=== PATIENT | male | born 2000 | race Caucasian/White ===

== ENCOUNTER 2018-07-20 23:26 | Inpatient (IN) | payer SELFPAY ==
[~2018-07-20] VITALS: Ht 170.2 cm; Wt 124.6 kg
[2018-07-20 23:58] LABS: GLUCOSE,POINT OF CARE 306 MG/DL (70-110)
[2018-07-21] MEDS ORDERED: 0.9% SODIUM CHLORIDE 10 ML SYRINGE IVP PRN ×2 (00:45→05:00)
[2018-07-21 01:00] LABS: APPEARANCE,URINE CLEAR (CLEAR); BILIRUBIN,URINE NEGATIVE (NEGATIVE); GLUCOSE, URINE (UA) >=1000 mg/dL (NEGATIVE); KETONES,URINE 15 mg/dL (NEGATIVE); LEUKOCYTE ESTERASE ,URINE NEGATIVE (NEGATIVE); NITRATE,URINE NEGATIVE (NEGATIVE); OCCULT BLOOD,URINE SMALL (NEGATIVE); PROTEIN,URINE POS 1+ (NEGATIVE); UROBILINOGEN,URINE 0.2 mg/dL (<=1.0)
[2018-07-21] MEDS ORDERED: SODIUM CHLORIDE 0.9% 2,400 ML IV ONE (01:00)
[2018-07-21 01:17] LABS: BACTERIA,URINE Few /HPF (None Seen); SQUAMOUS EPITHELIAL CELL,UR Rare /LPF (None Seen); WBC,URINE 0-2 /HPF (0-5)
[2018-07-21 01:18] LABS: COARSE GRANULAR CASTS,URINE 0-2 /LPF (None Seen); FINE GRANULAR CASTS,URINE 0-2 /LPF (None Seen); HYALINE CASTS, URINE 0-2 /LPF (None Seen)
[2018-07-21] MEDS ORDERED: ONDANSETRON HCL 4 MG/2 ML VIAL IVP ONE (01:30)
[2018-07-21] MEDS ORDERED: MORPHINE SULFATE 4 MG/ML SYRINGE IVP ONE (01:30)
[2018-07-21 01:43] LABS: HEMATOCRIT 42.4 % (41-53); HEMOGLOBIN 14.3 g/dL (13.5-17.5); MEAN CORPUSCULAR HEMOGLOBIN 27.3 pg (26.0-34.0); MEAN CORPUSCULAR HGB CONC 33.7 G/dL (31.0-37.0); MEAN CORPUSCULAR VOLUME 81 fL (80-100); PLATELET COUNT (AUTO) 278 K/uL (150-450); RED BLOOD CELL COUNT(AUTO) 5.23 MIL/uL (4.50-5.90); RED CELL DISTRIBUTION WIDTH 15.2 % (11.5-14.5)
[2018-07-21] MEDS ORDERED: SODIUM CHLORIDE 0.9% 100 ML ONE (01:47)
[2018-07-21] MEDS ORDERED: IOVERSOL 350 MG/ML 100 ML VIAL ONE (01:47)
[2018-07-21 01:53] LABS: PROTHROMBIN TIME 10.5 SEC (9.4-11.6)
[2018-07-21 02:05] LABS: ANION GAP 18 mmol/L (8-16); BILIRUBIN,TOTAL 0.7 mg/dL (0.1-1.0); CALCIUM, TOTAL 9.2 mg/dL (8.8-10.5); CARBON DIOXIDE 17 mmol/L (22-29); CHLORIDE 102 mmol/L (98-107); CREATININE 0.81 mg/dL (0.60-1.30); GLOMERULAR FILTR. RATE CALC > 60 mL/min (>60); GLUCOSE,RANDOM 285 mg/dL (70-110); SODIUM SERUM 137 mmol/L (136-145); UREA NITROGEN, BLOOD 3 mg/dL (7-18)
[2018-07-21 02:06] LABS: ALANINE AMINOTRANSFERASE 115 U/L (12-78); ALKALINE PHOSPHATASE 185 U/L (46-116); ASPARTATE AMINOTRANSFERASE 46 U/L (15-37); CREATINE KINASE, TOTAL ONLY 265 U/L (39-308)
[2018-07-21 02:07] LABS: B-TYPE NATRIURETIC PEPTIDE 20 pg/mL (0-100)
[2018-07-21 02:10] LABS: POTASSIUM 1.5 mmol/L (3.5-5.1)
[2018-07-21 02:11] LABS: LACTIC ACID 3.5 mmol/L (0.4-2.0)
[2018-07-21 02:16] LABS: BAND NEUTROPHILS % (MANUAL) 0 % (0-5)
[2018-07-21 02:20] LABS: CORRECTED WHITE BLOOD COUNT 1.7 K/uL (4.5-11.0); LYMPHOCYTES % (MANUAL) 58 % (22-44); MONOCYTES % (MANUAL) 17 % (2-9); SEGMENTED NEUTROPHILS % 25 % (40-70)
[2018-07-21 02:24] LABS: GLUCOSE,POINT OF CARE 247 MG/DL (70-110)
[2018-07-21 02:25] LABS: ALBUMIN 3.3 g/dL (3.4-5.0); TOTAL PROTEIN, SERUM 6.5 g/dL (6.4-8.2)
[2018-07-21 02:30] LABS: MAGNESIUM 1.6 mg/dL (1.80-2.40)
[2018-07-21 02:33] LABS: POTASSIUM 1.5 mmol/L (3.5-5.1)
[2018-07-21] MEDS ORDERED: POTASSIUM CHLORIDE 10% 40 MEQ/30 ML LIQUID UDCUP PO ONE (02:45)
[2018-07-21 02:56] LABS: PHOSPHORUS 0.8 mg/dL (2.5-4.9)
[2018-07-21] MEDS: POTASSIUM CHL 10 MEQ/WATER 50 ML IV SCH ×4 (03:15→10:11)
[2018-07-21] MEDS ORDERED: PIPERACILLIN/TAZO 3.375 GM/D5W 50 ML IV ONE (03:30)
[2018-07-21] MEDS ORDERED: MAGNESIUM SULFATE 1 GM in DEXTROSE 5%-WATER 50 ML IV ONE (03:45)
[2018-07-21] MEDS ORDERED: ACETAMINOPHEN 325 MG TABLET PO PRN (05:00)
[2018-07-21] MEDS ORDERED: ONDANSETRON HCL 4 MG/2 ML VIAL IVP PRN (05:00)
[2018-07-21 05:54] VITALS: BP 111/59
[2018-07-21] MEDS ORDERED: SODIUM CHLORIDE 0.9% 250 ML IV ONE (06:06)
[2018-07-21 07:56] VITALS: BP 125/60
[2018-07-21] MEDS ORDERED: MAGNESIUM SULFATE 2 GM/WATER 50 ML IV PRN (09:30)
[2018-07-21] MEDS ORDERED: MAGNESIUM SULFATE 4 GM/WATER 100 ML IV PRN (09:30)
[2018-07-21] MEDS ORDERED: DEXTROSE 50%-WATER 25 GM/50 ML SYRINGE IVP PRN (09:30)
[2018-07-21] MEDS ORDERED: POTASSIUM PHOS,M-BASIC-D-BASIC 30 MEQ in DEXTROSE 5%-WATER 150 ML IV ONE (09:30)
[2018-07-21] MEDS ORDERED: MAGNESIUM HYDROXIDE SUSPENSION 30 ML UDCUP PO PRN (09:30)
[2018-07-21] MEDS ORDERED: SODIUM CHLORIDE 0.9% 1,000 ML IV ONE (09:45)
[2018-07-21] MEDS: PANTOPRAZOLE SODIUM 40 MG/VIAL IVP SCH ×2 (10:11→20:10)
[2018-07-21] MEDS: MORPHINE SULFATE 2 MG/ML SYRINGE IVP PRN ×2 (10:11→14:02)
[2018-07-21] MEDS: PIPERACILLIN/TAZO 3.375 GM/D5W 50 ML IV SCH ×3 (10:28→22:41)
[2018-07-21 11:27] VITALS: BP 119/56
[2018-07-21] MEDS: ONDANSETRON HCL 4 MG/2 ML VIAL IVP PRN (13:29)
[2018-07-21] MEDS: INSULIN LISPRO 100 UNITS/ML SQ PRN ×3 (13:30→20:09)
[2018-07-21 15:30] VITALS: BP 118/65
[2018-07-21] MEDS: ACETAMINOPHEN 325 MG TABLET PO PRN (18:47)
[2018-07-21 18:59] LABS: GLUCOMETER DEV NAME(LOC) 5S.1; GLUCOSE,POINT OF CARE 271 MG/DL (70-110)
[2018-07-21 19:04] LABS: GLUCOMETER DEV NAME(LOC) 5S.1; GLUCOSE,POINT OF CARE 279 MG/DL (70-110)
[2018-07-21 19:59] VITALS: BP 118/61
[2018-07-21] MEDS: DOCUSATE SODIUM 100 MG CAPSULE PO SCH (20:09)
[2018-07-22 00:20] VITALS: BP 125/68
[2018-07-22] MEDS: ACETAMINOPHEN 325 MG TABLET PO PRN ×3 (00:20→17:28)
[2018-07-22 00:29] LABS: GLUCOMETER DEV NAME(LOC) 5N.1; GLUCOSE,POINT OF CARE 277 MG/DL (70-110)
[2018-07-22] MEDS: PIPERACILLIN/TAZO 3.375 GM/D5W 50 ML IV SCH ×4 (03:48→22:08)
[2018-07-22 04:20] VITALS: BP 128/89
[2018-07-22] MEDS: INSULIN LISPRO 100 UNITS/ML SQ PRN ×4 (05:59→20:07)
[2018-07-22 06:48] LABS: HEMATOCRIT 39.8 % (41-53); HEMOGLOBIN 13.6 g/dL (13.5-17.5); MEAN CORPUSCULAR HEMOGLOBIN 27.5 pg (26.0-34.0); MEAN CORPUSCULAR HGB CONC 34.1 G/dL (31.0-37.0); MEAN CORPUSCULAR VOLUME 81 fL (80-100); PLATELET COUNT (AUTO) 256 K/uL (150-450); RED BLOOD CELL COUNT(AUTO) 4.93 MIL/uL (4.50-5.90); RED CELL DISTRIBUTION WIDTH 15.9 % (11.5-14.5)
[2018-07-22 07:14] LABS: ALANINE AMINOTRANSFERASE 78 U/L (12-78); ALBUMIN 2.7 g/dL (3.4-5.0); ALKALINE PHOSPHATASE 134 U/L (46-116); ANION GAP 17 mmol/L (8-16); ASPARTATE AMINOTRANSFERASE 30 U/L (15-37); BILIRUBIN,TOTAL 0.9 mg/dL (0.1-1.0); CALCIUM, TOTAL 8.2 mg/dL (8.8-10.5); CARBON DIOXIDE 20 mmol/L (22-29); CHLORIDE 101 mmol/L (98-107); CREATININE 0.87 mg/dL (0.60-1.30); GLOMERULAR FILTR. RATE CALC > 60 mL/min (>60); GLUCOSE,RANDOM 280 mg/dL (70-110); POTASSIUM 3.1 mmol/L (3.5-5.1); SODIUM SERUM 138 mmol/L (136-145); TOTAL PROTEIN, SERUM 5.6 g/dL (6.4-8.2); UREA NITROGEN, BLOOD 5 mg/dL (7-18)
[2018-07-22 07:51] VITALS: BP 124/87
[2018-07-22] MEDS: DOCUSATE SODIUM 100 MG CAPSULE PO SCH ×2 (08:12→19:51)
[2018-07-22] MEDS: PANTOPRAZOLE SODIUM 40 MG/VIAL IVP SCH ×2 (08:12→19:52)
[2018-07-22] MEDS: POTASSIUM CHLORIDE 20 MEQ ER TABLET PO PRN ×2 (08:12→22:22)
[2018-07-22 08:22] LABS: BAND NEUTROPHILS % (MANUAL) 6 % (0-5); LYMPHOCYTES % (MANUAL) 57 % (22-44); MONOCYTES % (MANUAL) 17 % (2-9); SEGMENTED NEUTROPHILS % 20 % (40-70)
[2018-07-22] MEDS: POTASSIUM CHL 10 MEQ/WATER 50 ML IV PRN ×3 (10:09→17:15)
[2018-07-22 12:09] VITALS: BP 108/64
[2018-07-22 13:45] LABS: GLUCOMETER DEV NAME(LOC) 5S.1; GLUCOSE,POINT OF CARE 298 MG/DL (70-110)
[2018-07-22] MEDS: POTASSIUM PHOS/SODIUM PHOS MIXTURE 1 POWDER PACKET PO SCH ×2 (15:31→19:51)
[2018-07-22 15:42] VITALS: BP 124/72
[2018-07-22] MEDS: MetFORMIN HCL 500 MG TABLET PO SCH (17:15)
[2018-07-22 20:31] VITALS: BP 112/66
[2018-07-22] MEDS: MORPHINE SULFATE 2 MG/ML SYRINGE IVP PRN (20:47)
[2018-07-22 22:45] LABS: GLUCOMETER DEV NAME(LOC) 5S.1; GLUCOSE,POINT OF CARE 299 MG/DL (70-110)
[2018-07-23] VITALS (7 sets, daily range): BP systolic 102–115; BP diastolic 51–88
[2018-07-23 00:04] LABS: GLUCOMETER DEV NAME(LOC) 5N.1; GLUCOSE,POINT OF CARE 299 MG/DL (70-110)
[2018-07-23 00:04] LABS: GLUCOMETER DEV NAME(LOC) 5N.1; GLUCOSE,POINT OF CARE 268 MG/DL (70-110)
[2018-07-23] MEDS: POTASSIUM CHLORIDE 20 MEQ ER TABLET PO PRN ×3 (03:03→18:38)
[2018-07-23] MEDS: PIPERACILLIN/TAZO 3.375 GM/D5W 50 ML IV SCH ×4 (03:14→21:56)
[2018-07-23] MEDS: ACETAMINOPHEN 325 MG TABLET PO PRN ×3 (04:30→20:08)
[2018-07-23] MEDS: INSULIN LISPRO 100 UNITS/ML SQ PRN ×3 (05:45→20:17)
[2018-07-23 07:31] LABS: BASOPHILS % (AUTO) 0.5 % (0.0-2.0); EOSINOPHILS % (AUTO) 0.1 % (1.0-6.0); HEMATOCRIT 40.6 % (41-53); HEMOGLOBIN 13.7 g/dL (13.5-17.5); LYMPHOCYTES # (AUTO) 1.6 K/uL (1.0-4.8); MEAN CORPUSCULAR HEMOGLOBIN 27.2 pg (26.0-34.0); MEAN CORPUSCULAR HGB CONC 33.8 G/dL (31.0-37.0); MEAN CORPUSCULAR VOLUME 81 fL (80-100); MONOCYTES # (AUTO) 0.9 K/uL (0.1-1.0); MONOCYTES % (AUTO) 23.7 % (2.0-9.0); NEUTROPHILS # (AUTO) 1.4 K/uL (1.8-7.7); NEUTROPHILS % (AUTO) 35.7 % (40.0-70.0); PLATELET COUNT (AUTO) 217 K/uL (150-450); RED BLOOD CELL COUNT(AUTO) 5.04 MIL/uL (4.50-5.90); RED CELL DISTRIBUTION WIDTH 16.4 % (11.5-14.5)
[2018-07-23 07:41] LABS: ALANINE AMINOTRANSFERASE 63 U/L (12-78); ALBUMIN 2.4 g/dL (3.4-5.0); ALKALINE PHOSPHATASE 100 U/L (46-116); ANION GAP 15 mmol/L (8-16); ASPARTATE AMINOTRANSFERASE 26 U/L (15-37); BILIRUBIN,TOTAL 0.9 mg/dL (0.1-1.0); CALCIUM, TOTAL 8.4 mg/dL (8.8-10.5); CARBON DIOXIDE 21 mmol/L (22-29); CHLORIDE 99 mmol/L (98-107); CREATININE 0.91 mg/dL (0.60-1.30); GLOMERULAR FILTR. RATE CALC > 60 mL/min (>60); GLUCOSE,RANDOM 174 mg/dL (70-110); POTASSIUM 3.1 mmol/L (3.5-5.1); SODIUM SERUM 135 mmol/L (136-145); TOTAL PROTEIN, SERUM 5.4 g/dL (6.4-8.2); UREA NITROGEN, BLOOD 7 mg/dL (7-18)
[2018-07-23 07:43] LABS: PHOSPHORUS 1.3 mg/dL (2.5-4.9)
[2018-07-23] MEDS: MetFORMIN HCL 500 MG TABLET PO SCH ×2 (08:28→17:33)
[2018-07-23] MEDS: DOCUSATE SODIUM 100 MG CAPSULE PO SCH ×3 (08:28→21:00)
[2018-07-23] MEDS: PANTOPRAZOLE SODIUM 40 MG/VIAL IVP SCH ×2 (08:28→20:01)
[2018-07-23] MEDS: POTASSIUM PHOS/SODIUM PHOS MIXTURE 1 POWDER PACKET PO SCH ×4 (08:28→20:01)
[2018-07-23 09:30] LABS: GLUCOMETER DEV NAME(LOC) 5S.1; GLUCOSE,POINT OF CARE 176 MG/DL (70-110)
[2018-07-23] MEDS: MAGNESIUM OXIDE 400 MG TABLET PO PRN ×2 (10:34→13:05)
[2018-07-23] MEDS: ONDANSETRON HCL 4 MG/2 ML VIAL IVP PRN ×2 (13:04→18:41)
[2018-07-23 15:42] LABS: APPEARANCE,URINE CLOUDY (CLEAR); BILIRUBIN,URINE NEGATIVE (NEGATIVE); GLUCOSE, URINE (UA) NEGATIVE (NEGATIVE); KETONES,URINE TRACE mg/dL (NEGATIVE); LEUKOCYTE ESTERASE ,URINE NEGATIVE (NEGATIVE); NITRATE,URINE NEGATIVE (NEGATIVE); OCCULT BLOOD,URINE NEGATIVE (NEGATIVE); PH,URINE 5.5 (5.0-8.0); PROTEIN,URINE SEE CONFIRM (NEGATIVE); UROBILINOGEN,URINE 0.2 mg/dL (<=1.0)
[2018-07-23 15:53] LABS: SULFOSALICYLIC ACID,URINE 4+ (Negative)
[2018-07-23 15:57] LABS: RBC,URINE None Seen /HPF (0-2)
[2018-07-23 15:58] LABS: BACTERIA,URINE Moderate /HPF (None Seen); SQUAMOUS EPITHELIAL CELL,UR Rare /LPF (None Seen); YEAST,URINE Few /HPF (None Seen)
[2018-07-23 16:00] LABS: WBC,URINE None Seen /HPF (0-5)
[2018-07-23 16:01] LABS: COARSE GRANULAR CASTS,URINE 0-2 /LPF (None Seen)
[2018-07-23 21:05] LABS: GLUCOMETER DEV NAME(LOC) 5N.1; GLUCOSE,POINT OF CARE 173 MG/DL (70-110)
[2018-07-23] MEDS ORDERED: SODIUM CHLORIDE 0.9% 250 ML IV ONE (21:58)
[2018-07-24 02:09] LABS: GLUCOMETER DEV NAME(LOC) 5S.2; GLUCOSE,POINT OF CARE 150 MG/DL (70-110)
[2018-07-24] MEDS: PIPERACILLIN/TAZO 3.375 GM/D5W 50 ML IV SCH ×3 (04:18→16:00)
[2018-07-24 04:59] VITALS: BP 115/67
[2018-07-24] MEDS: INSULIN LISPRO 100 UNITS/ML SQ PRN ×3 (06:00→17:47)
[2018-07-24 06:15] LABS: GLUCOMETER DEV NAME(LOC) 5S.1; GLUCOSE,POINT OF CARE 170 MG/DL (70-110)
[2018-07-24 07:07] LABS: BASOPHILS % (AUTO) 0.3 % (0.0-2.0); EOSINOPHILS % (AUTO) 0.1 % (1.0-6.0); HEMATOCRIT 35.6 % (41-53); HEMOGLOBIN 12.1 g/dL (13.5-17.5); LYMPHOCYTES # (AUTO) 1.5 K/uL (1.0-4.8); LYMPHOCYTES % (AUTO) 18.9 % (22.0-44.0); MEAN CORPUSCULAR HEMOGLOBIN 27.5 pg (26.0-34.0); MEAN CORPUSCULAR HGB CONC 34.1 G/dL (31.0-37.0); MEAN CORPUSCULAR VOLUME 81 fL (80-100); MONOCYTES # (AUTO) 1.1 K/uL (0.1-1.0); MONOCYTES % (AUTO) 13.7 % (2.0-9.0); NEUTROPHILS # (AUTO) 5.2 K/uL (1.8-7.7); PLATELET COUNT (AUTO) 198 K/uL (150-450); RED BLOOD CELL COUNT(AUTO) 4.41 MIL/uL (4.50-5.90); RED CELL DISTRIBUTION WIDTH 16.4 % (11.5-14.5)
[2018-07-24 07:19] LABS: ANION GAP 13 mmol/L (8-16); CALCIUM, TOTAL 8.4 mg/dL (8.8-10.5); CARBON DIOXIDE 24 mmol/L (22-29); CHLORIDE 99 mmol/L (98-107); CREATININE 0.78 mg/dL (0.60-1.30); GLOMERULAR FILTR. RATE CALC > 60 mL/min (>60); GLUCOSE,RANDOM 140 mg/dL (70-110); PHOSPHORUS 1.5 mg/dL (2.5-4.9); POTASSIUM 3.2 mmol/L (3.5-5.1); SODIUM SERUM 136 mmol/L (136-145); UREA NITROGEN, BLOOD 10 mg/dL (7-18)
[2018-07-24 07:56] VITALS: BP 108/44
[2018-07-24] MEDS: MAGNESIUM OXIDE 400 MG TABLET PO PRN ×2 (08:47→12:41)
[2018-07-24] MEDS: POTASSIUM CHLORIDE 20 MEQ ER TABLET PO PRN (08:47)
[2018-07-24] MEDS: MetFORMIN HCL 500 MG TABLET PO SCH ×2 (08:47→17:32)
[2018-07-24] MEDS: PANTOPRAZOLE SODIUM 40 MG/VIAL IVP SCH (08:48)
[2018-07-24] MEDS: POTASSIUM PHOS/SODIUM PHOS MIXTURE 1 POWDER PACKET PO SCH ×2 (08:48→16:15)
[2018-07-24] MEDS: DOCUSATE SODIUM 100 MG CAPSULE PO SCH (08:48)
[2018-07-24] MEDS: ONDANSETRON HCL 4 MG/2 ML VIAL IVP PRN (08:48)
[2018-07-24 11:24] VITALS: BP 116/51
[2018-07-24] MEDS ORDERED: LACTOBAC ACID/BULG/BIFID/THERM TABLET PO SCH (11:30)
[2018-07-24 15:12] VITALS: BP 126/45
[2018-07-24 18:10] LABS: GLUCOMETER DEV NAME(LOC) 5N.1; GLUCOSE,POINT OF CARE 163 MG/DL (70-110)
[2018-07-24 18:10] LABS: GLUCOMETER DEV NAME(LOC) 5N.1; GLUCOSE,POINT OF CARE 173 MG/DL (70-110)
[2018-07-24] MEDS ORDERED: KDUR20 PO (18:32)
[2018-07-24] MEDS ORDERED: METF-444 PO (18:32)
[2018-07-24] MEDS ORDERED: MAGN400T25 PO (18:33)
[2018-07-24 21:44] LABS: GLUCOMETER DEV NAME(LOC) 5S.2; GLUCOSE,POINT OF CARE 160 MG/DL (70-110)
== END 2018-07-24 19:05 | disposition home or self-care (01) | DRG 841 ==
LOC: EMS 23:28 → 5S 07-21 05:00
PROVIDERS: ADMIT Internal Medicine; ATTEND Internal Medicine
DX: C85.90 Non-Hodgkin lymphoma, unspecified, unspecified site (principal); Z68.41 Body mass index [BMI] 40.0-44.9, adult; J98.11 Atelectasis; E44.0 Moderate protein-calorie malnutrition; E87.6 Hypokalemia; E11.65 Type 2 diabetes mellitus with hyperglycemia; E66.01 Morbid (severe) obesity due to excess calories; E87.8 Other disorders of electrolyte and fluid balance, not elsewhere classified; D72.819 Decreased white blood cell count, unspecified; E83.42 Hypomagnesemia; E83.39 Other disorders of phosphorus metabolism; M60.9 Myositis, unspecified
CPT/HCPCS: 70450; 74177; 83605; 83735; 84100; 84132; 85651; 87040; 87086; 93005; 99291; C9113; G0378; J2270; J2405; J2543; J3475; J3480; J3490; J7030; J7050; J7060